=== PATIENT | female | born 1990 | race Caucasian/White ===

== ENCOUNTER 2018-08-12 16:49 | Outpatient (CLI) | payer OTHER ==
[2018-08-12 20:22] LABS: ADD UMIC YES; UR ASCORBIC ACID NEGATIVE (NEGATIVE); UR BACTERIA FEW /HPF (NONE SEEN); UR BILIRUBIN (Dip) NEGATIVE (NEGATIVE); UR BLOOD (Dip) NEGATIVE (NEGATIVE); UR CLARITY CLEAR (CLEAR); UR COLOR COLORLESS (YELLOW); UR GLUCOSE (Dip) NEGATIVE (NEGATIVE); UR KETONES (Dip) NEGATIVE (NEGATIVE); UR LEUKOCYTE ESTERASE (Dip) TRACE Leu/ul (NEGATIVE); UR NITRITE (Dip) NEGATIVE (NEGATIVE); UR RBC 1 /HPF (0-5); UR SPECIFIC GRAVITY (Dip) 1.003 (1.003-1.030); UR SQUAMOUS EPITHELIAL CELL FEW /HPF (FEW); UR TOTAL PROTEIN (Dip) NEGATIVE (NEGATIVE); UR UROBILINOGEN (Dip) NEGATIVE (NEGATIVE); UR WBC 1 /HPF (0-5)
== END 2018-08-12 22:35 | disposition home or self-care (01) ==
LOC: OBT 16:49 → L-D 16:51 → OBT 22:35
DX: O47.1 False labor at or after 37 completed weeks of gestation (principal); Z3A.39 39 weeks gestation of pregnancy
CPT/HCPCS: 76815; 76818; 81001

== ENCOUNTER 2018-08-20 09:14 | Inpatient (IN) | payer OTHER ==
[2018-08-20] MEDS ORDERED: MISOPROSTOL 200 MCG TAB PR (09:30)
[2018-08-20] MEDS: MISOPROSTOL 50 MCG CAPSULE PO (09:30)
[2018-08-20] MEDS ORDERED: BUTORPHANOL 2 MG INJ IV (09:30)
[2018-08-20] MEDS ORDERED: LIDOCAINE 1% (MPF) 30 ML INJ INJ (09:30)
[2018-08-20] MEDS ORDERED: CARBOPROST 250 MCG INJ IM (09:30)
[2018-08-20] MEDS ORDERED: IBUPROFEN 600 MG TAB PO (09:30)
[2018-08-20] MEDS ORDERED: OXYTOCIN 30 UNITS/LR 500 ML IV (09:30)
[2018-08-20] MEDS ORDERED: METHYLERGONOVINE 0.2 MG INJ IM (09:30)
[2018-08-20] MEDS: LACTATED RINGER'S 1,000 ML IV ×2 (10:11→17:30)
[2018-08-20 10:23] LABS: ADD MAN DIFF? NO
[2018-08-20 10:28] LABS: WHITE BLOOD COUNT 8.4 10^3/ul (4.8-10.8)
[2018-08-20 10:28] LABS: BASOPHILS % 0.2 % (0.0-2.0); EOSINOPHILS # 0.1 10^3/ul (0.0-0.5); EOSINOPHILS % 1.4 % (0.0-7.0); HEMATOCRIT 39.3 % (37.0-47.0); HEMOGLOBIN 13.1 g/dl (12.0-16.0); LYMPHOCYTES # 1.7 10^3/ul (0.8-2.9); LYMPHOCYTES % 20.3 % (15.0-51.0); MEAN CORPUSCULAR HEMOGLOBIN 29.2 pg (29.0-33.0); MEAN CORPUSCULAR HGB CONC 33.3 g/dl (32.0-37.0); MEAN CORPUSCULAR VOLUME 87.7 fl (82.0-101.0); MONOCYTE # 0.6 10^3/ul (0.3-0.9); MONOCYTES % 7.7 % (0.0-11.0); NEUTROPHIL # 5.8 10^3/ul (1.6-7.5); NEUTROPHILS % 69.7 % (39.0-77.0); PLATELET COUNT 248 10^3/UL (140-415); RED BLOOD COUNT 4.48 10^6/ul (4.20-5.40); RED CELL DISTRIBUTION WIDTH 14.6 % (11.5-14.5)
[2018-08-20 10:59] LABS: INR 0.92; PROTIME 12.5 Sec (11.9-14.9)
[2018-08-20 11:00] LABS: PARTIAL THROMBOPLASTIN TIME 29.7 Sec (23.0-35.0)
[2018-08-20 11:18] LABS: HEPATITIS B SURFACE ANTIGEN NEGATIVE (NEGATIVE)
[2018-08-20] MEDS: OXYTOCIN 30 UNITS/LR 500 ML IV (12:50)
[2018-08-20 14:28] LABS: HIV 1&2 ANTIBODY NEGATIVE (NEGATIVE)
[2018-08-20 15:27] LABS: RAPID PLASMA REAGIN NONREACTIVE (NR)
[2018-08-20] MEDS ORDERED: FENTAnyl 2MCG/ML-ROPIV 0.2% 100 ML (19:50)
[2018-08-20] MEDS ORDERED: NALOXONE (0.4 MG/ML) INJ IV (20:00)
[2018-08-21] MEDS: LACTATED RINGER'S 1,000 ML IV (02:38)
[2018-08-21] MEDS: FENTAnyl 2MCG/ML-ROPIV 0.2% 100 ML BAG EPI (03:11)
[2018-08-21] MEDS: MINERAL OIL LIGHT 10 ML VIAL TOP ×2 (03:59)
[2018-08-21] MEDS: OXYTOCIN 30 UNITS/LR 500 ML IV ×3 (04:37→10:00)
[2018-08-21] MEDS ORDERED: NACL 0.9% 3 ML SYG IV (05:00)
[2018-08-21] MEDS ORDERED: CARBOPROST 250 MCG INJ IM (05:00)
[2018-08-21] MEDS ORDERED: METHYLERGONOVINE 0.2 MG INJ IM (05:00)
[2018-08-21] MEDS ORDERED: MISOPROSTOL 200 MCG TAB PR (05:00)
[2018-08-21] MEDS ORDERED: OXYTOCIN 30 UNITS/LR 500 ML IV (05:00)
[2018-08-21] MEDS ORDERED: OXYCODONE/ASPIRIN (4.88/325) TAB PO ×2 (05:00)
[2018-08-21] MEDS ORDERED: MAGNESIUM HYDROXIDE 30ML CUP PO (05:00)
[2018-08-21] MEDS ORDERED: ONDANSETRON 4 MG INJ IV (05:00)
[2018-08-21] MEDS: IBUPROFEN 600 MG TAB PO ×3 (07:07→17:11)
[2018-08-21] MEDS: WITCH HAZEL/GLYCERIN PAD PR (10:12)
[2018-08-21] MEDS: SENNA/DOCUSATE NA (8.6MG/50MG) TAB PO ×2 (10:12→21:49)
[2018-08-21] MEDS: BENZOCAINE 20% 56 ML SPRAY TOP (10:12)
[2018-08-21] MEDS: LANOLIN HPA 1 PKT TOP (10:12)
[2018-08-21 13:21] LABS: RUBELLA ANTIBODY - IGG 1.43 index
[2018-08-22 05:16] LABS: HEMATOCRIT 33.1 % (37.0-47.0); HEMOGLOBIN 10.9 g/dl (12.0-16.0)
[2018-08-22] MEDS: IBUPROFEN 600 MG TAB PO ×4 (06:53→17:49)
[2018-08-22] MEDS: SENNA/DOCUSATE NA (8.6MG/50MG) TAB PO ×2 (09:20→21:00)
[2018-08-23] MEDS: IBUPROFEN 600 MG TAB PO ×2 (00:24→05:48)
[2018-08-23] MEDS: SENNA/DOCUSATE NA (8.6MG/50MG) TAB PO (09:00)
[2018-08-23 12:31] LABS: RUBELLA ANTIBODY - IGM <20.00 AU/mL
== END 2018-08-23 12:25 | disposition home or self-care (01) | DRG 807 ==
LOC: L-D 09:14 → MS1 08-21 06:24
PROVIDERS: Obstetrics & Gynecology
PROC: 10E0XZZ Delivery of Products of Conception, External Approach (ICD-10-PCS; principal; 2018-08-21)
PROC: 0HQ9XZZ Repair Perineum Skin, External Approach (ICD-10-PCS; 2018-08-21)
DX: O70.0 First degree perineal laceration during delivery (principal); Z37.0 Single live birth; Z3A.40 40 weeks gestation of pregnancy
CPT/HCPCS: 62319; 76815; 85014; 85018; 85025; 85610; 85730; 86592; 86703; 86762; 86850; 86900; 86901; 87340; 87536; 99464